=== PATIENT | female | born 1945 | race Caucasian/White ===

== ENCOUNTER 2019-09-05 15:54 | Emergency (ER) | payer MEDICARE ==
[2019-09-05 16:37] VITALS: PULSE 80
[2019-09-05 17:28] VITALS: BP 143/75
--- NOTE | 2019-09-05 17:56 | EDM.PDOC ---
ED HPI GENERAL MEDICAL PROBLEM - General Chief Complaint: Gastrointestinal Problem Stated Complaint: DARK COLORED DIARRHEA Time Seen by Provider: 09/05/19 16:30 Source of Information: Reports: Patient, Family History Limitations: Reports: No Limitations - History of Present Illness INITIAL COMMENTS - FREE TEXT/NARRATIVE: 74-year-old female with sudden onset of dark stools for the past 3 to 5 hours. She was seen 2 weeks ago for some persistent nausea but has not had emesis. Recent colonoscopy showed diverticulosis but no diverticulitis. No fevers or chills. No shortness of breath or cough. Denies nausea or vomiting currently. Onset: Sudden Duration: Hour(s): (2 hours) - Related Data Allergies Allergy/AdvReac Type Severity Reaction Status Date / Time amoxicillin trihydrate Allergy Rash Verified 09/05/19 16:09 [From Augmentin] azithromycin [From Zithromax] Allergy Rash Verified 09/05/19 16:09 erythromycin base Allergy Rash Verified 09/05/19 16:09 [From Richard-Tab] potassium clavulanate Allergy Rash Verified 09/05/19 16:09 [From Augmentin] Home Meds: Home Meds DULoxetine [Cymbalta] 120 mg PO DAILY 08/27/14 [History] Rosuvastatin [Crestor] 40 mg PO DAILY 08/27/14 [History] Ondansetron [Zofran ODT] 4 mg PO ASDIRECTED 09/05/19 [History] lisinopriL [Lisinopril] 20 mg PO DAILY 09/05/19 [History] Past Medical History Cardiovascular History: Reports: High Cholesterol, Hypertension Respiratory History: Reports: COPD Gastrointestinal History: Reports: PUD Other Gastrointestinal History: polyps, hx post op ileus [employer] History: Reports: Musculoskeletal History: Reports: Back Pain, Chronic Other Musculoskeletal History: leg fx Psychiatric History: Reports: Depression Hematologic History: Reports: B12 Deficiency - Past Surgical History GI Surgical History: Reports: EGD Other Neurological Surgeries/Procedures: carpal tunnel. 2 cervical fusions and 3 on lower Musculoskeletal Surgical History: Reports: Other (See Below) Other Musculoskeletal Surgeries/Procedures:: back surgeries Social & Family History - Tobacco Use Smoking Status *Q: Current Every Day Smoker Years of Tobacco use: 50 Packs/Tins Daily: 1 - Alcohol Use Days Per Week of Alcohol Use: 7 Number of Drinks Per Day: 3 Total Drinks Per Week: 21 - Recreational Drug Use Recreational Drug Use: No ED ROS GENERAL - Review of Systems Review Of Systems: See Below Constitutional: Denies: Fever, Chills, Decreased Appetite HEENT: Reports: No Symptoms Respiratory: Denies: Shortness of Breath Cardiovascular: Denies: Chest Pain GI/Abdominal: Reports: Diarrhea, Hematochezia. Denies: Abdominal Pain, Nausea, Vomiting : Reports: No Symptoms Skin: Reports: No Symptoms Neurological: Reports: No Symptoms ED EXAM, GI/ABD - Physical Exam Exam: See Below Exam Limited By: No Limitations General Appearance: Alert, No Apparent Distress Eyes: Bilateral: Normal Appearance Respiratory/Chest: No Respiratory Distress, Lungs Clear Cardiovascular: Regular Rate, Rhythm GI/Abdominal Exam: Soft, Tender (Mild tenderness to palpation across the lower abdomen, somewhat worse on the left but no guarding or rebound.) Rectal (Female) Exam: Normal Exam, Other (Rectal exam revealed no masses, tenderness, and a small amount of brown stool) Extremities: Normal Inspection Course - Vital Signs Last Recorded V/S: Last Vital Signs Temp 97.2 F 09/05/19 16:14 Pulse 80 09/05/19 17:28 Resp 12 09/05/19 17:28 BP 143/75 H 09/05/19 17:28 Pulse Ox 96 09/05/19 17:28 - Orders/Labs/Meds Labs: Laboratory Tests 09/05/19 09/05/19 Range/Units 17:46 17:46 WBC 6.7 (4.5-11.0) K/uL RBC 3.65 (3.30-5.50) M/uL Hgb 12.7 (12.0-15.0) g/dL Hct 37.8 (36.0-48.0) % MCV 104 H (80-98) fL MCH 35 H (27-31) pg MCHC 34 (32-36) % Plt Count 212 (150-400) K/uL Neut % (Auto) 59 (36-66) % Lymph % (Auto) 30 (24-44) % [place] % (Auto) 10 H (2-6) % Eos % (Auto) 1 L (2-4) % Baso % (Auto) 1 (0-1) % Sodium 134 L (140-148) mmol/L Potassium 3.9 (3.6-5.2) mmol/L Chloride 98 L (100-108) mmol/L Carbon Dioxide 23 (21-32) mmol/L Anion Gap 16.9 H (5.0-14.0) mmol/L BUN 10 D (7-18) mg/dL Creatinine 0.9 (0.6-1.0) mg/dL Est Cr Clr Drug Dosing 44.68 mL/min Estimated GFR (MDRD) > 60 (>60) Glucose 83 (74-106) mg/dL Calcium 8.7 (8.5-10.1) mg/dL - Re-Assessments/Exams Free Text/Narrative Re-Assessment/Exam: 09/05/19 18:22 Guaiac did return positive but the stool was not melanotic. CBC and BMP were obtained. White count and hemoglobin were normal. She had 2 more loose stools which were green to brown, not melanotic. She wanted to try to go home so will be placed on Cipro 500 mg twice daily to cover early presumptive diverticulitis and she will return if worsening despite treatment. Also will return if melanotic stools recur and are persistent. Departure - Departure Time of Disposition: 18:33 Disposition: Home, Self-Care 01 Clinical Impression: Rectal bleeding, Diverticulitis - Discharge Information Instructions: Rectal Bleeding Referrals: PCP,None [Primary Care Provider] - Forms: ED Department Discharge Care Plan Goals: Continue your current antibiotics, maintain a soft stool with fiber or stool softeners and drink plenty of water. Take the antibiotic twice daily for 5 days, and return anytime if worsening such as increased bleeding or pain. Sepsis Event Note (ED) - Evaluation Sepsis Screening Result: No Definite Risk
== END 2019-09-05 18:34 | disposition home or self-care (01) ==
LOC: JP.ED 15:54
DX: K57.92 Diverticulitis of intestine, part unspecified, without perforation or abscess without bleeding (principal); K62.5 Hemorrhage of anus and rectum; I10 Essential (primary) hypertension; E78.00 Pure hypercholesterolemia, unspecified; F32.9 Major depressive disorder, single episode, unspecified; F17.210 Nicotine dependence, cigarettes, uncomplicated; Z79.899 Other long term (current) drug therapy; Z88.1 Allergy status to other antibiotic agents
CPT/HCPCS: 36415; 80048; 82272; 85025; 99283; 99284